=== PATIENT | female | born 1990 | race Caucasian/White ===

== ENCOUNTER 2018-01-31 03:10 | Inpatient (IN) ==
[2018-01-31] MEDS ORDERED: Ibuprofen 600 MG Tablet PO ONE (04:15)
[2018-01-31 04:47] LABS: Bilirubin,Urine Negative (Negative); Clarity,Urine Hazy (Clear); Color,Urine Yellow (Yellw/Straw); Glucose,Urine (UA) Negative (Negative); Leukocyte Esterase,Urine Negative (Negative); Mucus,Urine Few /lpf (Occasional); Nitrite,Urine Negative (Negative); Specific Gravity,Urine 1.023 (1.002-1.035); Squamous Epithelial Cell,Urine 11 /hpf (0-5)
--- NOTE | 2018-01-31 04:59 | ED ---
HPI General Chief Complaint: Nausea/Vomiting/Diarrhea Stated Complaint: medical Time Seen by Provider: 01/31/18 04:02 Source: patient and family () Mode of arrival: ambulatory Limitations: no limitations History of Present Illness HPI Narrative: 27-year-old female came to the emergency room with her and family with history of fever, chills, body aches, nausea and vomiting since past 4-6 hours. This was sudden onset. Patient says her throat hurts slightly when she swallows. Left ear hurts a little bit. She vomited 2 times nonbilious. Patient took some Tylenol prior to coming in. When she initially came in upon triage her temperature was 102.5. Patient is awake and answering questions appropriately. 1 of her daughters was coughing yesterday but did not have fever like her. No abdominal pain or chest pain. No dysuria or diarrhea. No aggravating or relieving factors identified MD complaint: Reports fever Onset (ago): hour(s) (4) Context: Reports sick contacts (Daughter was coughing yesterday) Associated symptoms: Reports chills, rigors, myalgias, sore throat, cough, nausea and vomiting Relieving factors: acetaminophen Exacerbating factors: nothing Treatments prior to arrival fever: Reports acetaminophen Related Data Home Medications Medication Instructions Recorded Confirmed No Known Home Medications 01/31/18 01/31/18 Previous Rx's Medication Instructions Recorded amoxicillin-pot clavulanate 1 tab PO Q12H #20 tab 02/02/18 [Augmentin] fluconazole 100 mg PO DAILY #10 tab 02/02/18 sulfamethoxazole-trimethoprim 1 tab PO Q12HR #20 tab 02/02/18 Allergies Allergy/AdvReac Type Severity Reaction Status Date / Time No Known Allergies Allergy Unverified 01/31/18 04:15 Review of Systems ROS: all other systems reviewed are negative Constitutional Reports fever(s) ENT Reports otalgia and Reports sore throat Gastrointestinal Reports nausea and Reports vomiting PMFSH Medical History Medical History Patient denies medical problems (Acute) Surgical History Surgical History No history of previous surgery (Acute) Family History Family History Other Family history normal Social History Social History Substance History: No History of Abuse Second Hand Smoke Exposure: No Smoking Status: Never smoker How Often Do You Have a Drink Containing Alcohol: Never Recent Travel in [facility] within the Last 8 Weeks: No Recent Out of Country Travel within the Last 8 Weeks: No Immunization History Tetanus Immunization: Never Vaccinated Exam Narrative Exam Narrative: GENERAL: Alert, moderate distress, answers questions appropriately SKIN: Focused skin assessment warm/dry. HEAD: Atraumatic. Normocephalic. EYES: Pupils equal and round. No scleral icterus. No injection or drainage. ENT: No nasal bleeding or discharge. Mucous membranes pink and moist. No pharyngeal erythema or exudates NECK: Trachea midline. No JVD. CARDIOVASCULAR: Regular rate and rhythm. No murmur appreciated. RESPIRATORY: No accessory muscle use. Clear to auscultation. Breath sounds equal bilaterally. GASTROINTESTINAL: Abdomen soft, non-tender, nondistended. Hepatic and splenic margins not palpable. MUSCULOSKELETAL: No obvious deformities. No clubbing. No cyanosis. No edema. NEUROLOGICAL: Awake and alert. No obvious cranial nerve deficits. Motor grossly within normal limits. Normal speech. PSYCHIATRIC: Appropriate mood and affect; insight and judgment normal. Course Initial Documented Vital Signs Temperature 102.3 F H 01/31/18 03:19 Pulse Rate 140 H 01/31/18 03:19 Respiratory Rate 20 01/31/18 03:19 Blood Pressure 121/61 01/31/18 03:19 Pulse Oximetry 97 01/31/18 03:19 Last Documented Vital Signs Temperature 98.1 F 02/02/18 08:00 Pulse Rate 71 02/02/18 08:00 Respiratory Rate 18 02/02/18 08:00 Blood Pressure 93/51 L 02/02/18 08:00 Pulse Oximetry 97 02/02/18 08:00 Medical Decision Making [facility] Narrative Medical decision making narrative: UA was negative. Awaiting for influenza to be resulted. Patient was given Motrin. Repeat temperature was 99.5. 6:44 AM blood test results are back. White blood cell count is significantly elevated with a left shift. Lactic acid is 2.8. I have ordered a third liter of IV fluid bolus, IV Zosyn and vancomycin to cover for sepsis. Based on these test results patient needs to be admitted. Awaiting for the hospitalist to call back. Medical Screen Exam Complete: Yes Emergency Medical Condition: Yes Lab Data Result diagrams: 02/01/18 05:57 02/01/18 05:57 Lab Results 01/31/18 01/31/18 01/31/18 Range/Units 04:32 05:44 05:44 WBC 18.9 H (4.0-11.0) th/mm3 RBC 4.57 (4.00-5.30) mil/mm3 Hgb 13.4 (11.6-15.3) gm/dL Hct 39.1 (35.0-46.0) % MCV 85.7 (80.0-100.0) fL MCH 29.4 (27.0-34.0) pg MCHC 34.3 (32.0-36.0) % RDW 13.3 (11.6-17.2) % Plt Count 222 (150-450) th/mm3 MPV 8.5 (7.0-11.0) fL Neut % (Auto) 90.8 H (16.0-70.0) % Lymph % (Auto) 4.3 L (9.0-44.0) % Rich % (Auto) 4.7 (0.0-8.0) % Eos % (Auto) 0.0 (0.0-4.0) % Baso % (Auto) 0.2 (0.0-2.0) % Neut # (Auto) 17.1 H (1.8-7.7) th/mm3 Lymph # (Auto) 0.8 L (1.0-4.8) th/mm3 Rich # (Auto) 0.9 (0.0-0.9) th/mm3 Eos # (Auto) 0.0 (0.0-0.4) th/mm3 Baso # (Auto) 0.0 (0.0-0.2) th/mm3 WBC Differential . Differential Comment Auto diff final Sodium 138 (136-145) meq/L Potassium 3.1 L (3.5-5.1) meq/L Chloride 104 (98-107) meq/L Carbon Dioxide 24.6 (21.0-32.0) meq/L Anion Gap 9 (5-15) meq/L BUN 15 (7-18) mg/dL Creatinine 0.83 (0.50-1.00) mg/dL Estimated GFR 82 L (>89) mL/min POC Glucose (68-110) mg/dl Random Glucose 106 (74-106) mg/dL Lactic Acid (0.4-2.0) mmol/L Calcium 8.6 (8.5-10.1) mg/dL Total Bilirubin 0.5 (0.2-1.0) mg/dL AST 36 (15-37) U/L ALT 41 (10-53) U/L Alkaline Phosphatase 97 (45-117) U/L Total Protein 8.2 (6.4-8.2) g/dL Albumin 4.1 (3.4-5.0) g/dL Procalcitonin (0.00-0.08) ng/mL Urine Color Yellow (Yellw/Straw) Urine Clarity Hazy H (Clear) Urine pH 7.0 (5.0-8.5) Ur Specific [place] 1.023 (1.002-1.035) Urine Protein Negative (Neg-Trace) mg/dL Urine Glucose (UA) Negative (Negative) mg/dL Urine Ketones Negative (Negative) mg/dL Urine Occult Blood Small H (Negative) Urine Nitrate Negative (Negative) Urine Bilirubin Negative (Negative) Urine Urobilinogen Less than 2 (Less than 2) mg/dL Ur Leukocyte Esterase Negative (Negative) Urine RBC 1 (0-3) /hpf Urine WBC 3 (0-5) /hpf Ur Squamous Epith Cells 11 (0-5) /hpf Urine Mucus Few H (Occasional) /lpf Micro UA Comment Culture not ind Ur Microscopic Review Not Reportable Urine Culture Comments Culture not ind Chlam trachomat DNA PCR (Not Detect) Hepatitis A IgM Ab (Nonreactive) Hep Bs Antigen (Nonreactive) Hep B Core IgM Ab (Nonreactive) Hep C IgG Ab (Nonreactive) HIV 1&2 Ab/P24 Ag 4thGn (Nonreactive) N.gonorrhoeae DNA (PCR) (Not Detect) 01/31/18 01/31/18 01/31/18 Range/Units 05:44 06:13 07:56 WBC (4.0-11.0) th/mm3 RBC (4.00-5.30) mil/mm3 Hgb (11.6-15.3) gm/dL Hct (35.0-46.0) % MCV (80.0-100.0) fL MCH (27.0-34.0) pg MCHC (32.0-36.0) % RDW (11.6-17.2) % Plt Count (150-450) th/mm3 MPV (7.0-11.0) fL Neut % (Auto) (16.0-70.0) % Lymph % (Auto) (9.0-44.0) % Rich % (Auto) (0.0-8.0) % Eos % (Auto) (0.0-4.0) % Baso % (Auto) (0.0-2.0) % Neut # (Auto) (1.8-7.7) th/mm3 Lymph # (Auto) (1.0-4.8) th/mm3 Rich # (Auto) (0.0-0.9) th/mm3 Eos # (Auto) (0.0-0.4) th/mm3 Baso # (Auto) (0.0-0.2) th/mm3 WBC Differential Differential Comment Sodium (136-145) meq/L Potassium (3.5-5.1) meq/L Chloride (98-107) meq/L Carbon Dioxide (21.0-32.0) meq/L Anion Gap (5-15) meq/L BUN (7-18) mg/dL Creatinine (0.50-1.00) mg/dL Estimated GFR (>89) mL/min POC Glucose 110 (68-110) mg/dl Random Glucose (74-106) mg/dL Lactic Acid 2.8 H 2.3 H (0.4-2.0) mmol/L Calcium (8.5-10.1) mg/dL Total Bilirubin (0.2-1.0) mg/dL AST (15-37) U/L ALT (10-53) U/L Alkaline Phosphatase (45-117) U/L Total Protein (6.4-8.2) g/dL Albumin (3.4-5.0) g/dL Procalcitonin (0.00-0.08) ng/mL Urine Color (Yellw/Straw) Urine Clarity (Clear) Urine pH (5.0-8.5) Ur Specific [place] (1.002-1.035) Urine Protein (Neg-Trace) mg/dL Urine Glucose (UA) (Negative) mg/dL Urine Ketones (Negative) mg/dL Urine Occult Blood (Negative) Urine Nitrate (Negative) Urine Bilirubin (Negative) Urine Urobilinogen (Less than 2) mg/dL Ur Leukocyte Esterase (Negative) Urine RBC (0-3) /hpf Urine WBC (0-5) /hpf Ur Squamous Epith Cells (0-5) /hpf Urine Mucus (Occasional) /lpf Micro UA Comment Ur Microscopic Review Urine Culture Comments Chlam trachomat DNA PCR (Not Detect) Hepatitis A IgM Ab (Nonreactive) Hep Bs Antigen (Nonreactive) Hep B Core IgM Ab (Nonreactive) Hep C IgG Ab (Nonreactive) HIV 1&2 Ab/P24 Ag 4thGn (Nonreactive) N.gonorrhoeae DNA (PCR) (Not Detect) 01/31/18 02/01/18 02/01/18 Range/Units 14:40 05:57 05:57 WBC 13.5 H (4.0-11.0) th/mm3 RBC 4.17 (4.00-5.30) mil/mm3 Hgb 12.1 (11.6-15.3) gm/dL Hct 36.4 (35.0-46.0) % MCV 87.3 (80.0-100.0) fL MCH 29.1 (27.0-34.0) pg MCHC 33.4 (32.0-36.0) % RDW 13.5 (11.6-17.2) % Plt Count 204 (150-450) th/mm3 MPV 8.4 (7.0-11.0) fL Neut % (Auto) 80.8 H (16.0-70.0) % Lymph % (Auto) 12.3 (9.0-44.0) % Rich % (Auto) 5.5 (0.0-8.0) % Eos % (Auto) 1.0 (0.0-4.0) % Baso % (Auto) 0.4 (0.0-2.0) % Neut # (Auto) 10.9 H (1.8-7.7) th/mm3 Lymph # (Auto) 1.7 (1.0-4.8) th/mm3 Rich # (Auto) 0.7 (0.0-0.9) th/mm3 Eos # (Auto) 0.1 (0.0-0.4) th/mm3 Baso # (Auto) 0.1 (0.0-0.2) th/mm3 WBC Differential . Differential Comment Auto diff final Sodium 141 (136-145) meq/L Potassium 3.5 (3.5-5.1) meq/L Chloride 111 H (98-107) meq/L Carbon Dioxide 22.9 (21.0-32.0) meq/L Anion Gap 7 (5-15) meq/L BUN 9 (7-18) mg/dL Creatinine 0.51 (0.50-1.00) mg/dL Estimated GFR Greater than 89 (>89) mL/min POC Glucose (68-110) mg/dl Random Glucose 101 (74-106) mg/dL Lactic Acid (0.4-2.0) mmol/L Calcium 8.0 L (8.5-10.1) mg/dL Total Bilirubin (0.2-1.0) mg/dL AST (15-37) U/L ALT (10-53) U/L Alkaline Phosphatase (45-117) U/L Total Protein (6.4-8.2) g/dL Albumin (3.4-5.0) g/dL Procalcitonin 1.65 H (0.00-0.08) ng/mL Urine Color (Yellw/Straw) Urine Clarity (Clear) Urine pH (5.0-8.5) Ur Specific [place] (1.002-1.035) Urine Protein (Neg-Trace) mg/dL Urine Glucose (UA) (Negative) mg/dL Urine Ketones (Negative) mg/dL Urine Occult Blood (Negative) Urine Nitrate (Negative) Urine Bilirubin (Negative) Urine Urobilinogen (Less than 2) mg/dL Ur Leukocyte Esterase (Negative) Urine RBC (0-3) /hpf Urine WBC (0-5) /hpf Ur Squamous Epith Cells (0-5) /hpf Urine Mucus (Occasional) /lpf Micro UA Comment Ur Microscopic Review Urine Culture Comments Chlam trachomat DNA PCR (Not Detect) Hepatitis A IgM Ab (Nonreactive) Hep Bs Antigen (Nonreactive) Hep B Core IgM Ab (Nonreactive) Hep C IgG Ab (Nonreactive) HIV 1&2 Ab/P24 Ag 4thGn (Nonreactive) N.gonorrhoeae DNA (PCR) (Not Detect) 02/01/18 02/01/18 Range/Units 13:23 16:00 WBC (4.0-11.0) th/mm3 RBC (4.00-5.30) mil/mm3 Hgb (11.6-15.3) gm/dL Hct (35.0-46.0) % MCV (80.0-100.0) fL MCH (27.0-34.0) pg MCHC (32.0-36.0) % RDW (11.6-17.2) % Plt Count (150-450) th/mm3 MPV (7.0-11.0) fL Neut % (Auto) (16.0-70.0) % Lymph % (Auto) (9.0-44.0) % Rich % (Auto) (0.0-8.0) % Eos % (Auto) (0.0-4.0) % Baso % (Auto) (0.0-2.0) % Neut # (Auto) (1.8-7.7) th/mm3 Lymph # (Auto) (1.0-4.8) th/mm3 Rich # (Auto) (0.0-0.9) th/mm3 Eos # (Auto) (0.0-0.4) th/mm3 Baso # (Auto) (0.0-0.2) th/mm3 WBC Differential Differential Comment Sodium (136-145) meq/L Potassium (3.5-5.1) meq/L Chloride (98-107) meq/L Carbon Dioxide (21.0-32.0) meq/L Anion Gap (5-15) meq/L BUN (7-18) mg/dL Creatinine (0.50-1.00) mg/dL Estimated GFR (>89) mL/min POC Glucose (68-110) mg/dl Random Glucose (74-106) mg/dL Lactic Acid (0.4-2.0) mmol/L Calcium (8.5-10.1) mg/dL Total Bilirubin (0.2-1.0) mg/dL AST (15-37) U/L ALT (10-53) U/L Alkaline Phosphatase (45-117) U/L Total Protein (6.4-8.2) g/dL Albumin (3.4-5.0) g/dL Procalcitonin (0.00-0.08) ng/mL Urine Color (Yellw/Straw) Urine Clarity (Clear) Urine pH (5.0-8.5) Ur Specific [place] (1.002-1.035) Urine Protein (Neg-Trace) mg/dL Urine Glucose (UA) (Negative) mg/dL Urine Ketones (Negative) mg/dL Urine Occult Blood (Negative) Urine Nitrate (Negative) Urine Bilirubin (Negative) Urine Urobilinogen (Less than 2) mg/dL Ur Leukocyte Esterase (Negative) Urine RBC (0-3) /hpf Urine WBC (0-5) /hpf Ur Squamous Epith Cells (0-5) /hpf Urine Mucus (Occasional) /lpf Micro UA Comment Ur Microscopic Review Urine Culture Comments Chlam trachomat DNA PCR Not detected (Not Detect) Hepatitis A IgM Ab Nonreactive (Nonreactive) Hep Bs Antigen Nonreactive (Nonreactive) Hep B Core IgM Ab Nonreactive (Nonreactive) Hep C IgG Ab Nonreactive (Nonreactive) HIV 1&2 Ab/P24 Ag 4thGn Nonreactive (Nonreactive) N.gonorrhoeae DNA (PCR) Not detected (Not Detect) Imaging Data Radiologist's impression: Abdomen Ultrasound 01/31/18 00:00 CONCLUSION: 1. Trace ascites 2. Mild echogenic liver. No gallstones. Chest X-Ray 01/31/18 05:21 CONCLUSION: No active disease. Pelvis Ultrasound 02/01/18 00:00 CONCLUSION: 1. Negative ultrasound pelvis. Discharge Plan Discharge Disposition Patient Disposition: 30 Still Patient Discharge Condition Condition: Good Discharge Order Discharge Orders: Discharge Order (Routine); Ordered 02/02/18 Ordered By: Joon Garsia Discharge Details Anticipated Discharge Date: 02/02/18 Discharge Comment: Follow up with [facility] within 1-2 weeks. Physicians Team ED Provider: Phil Mccray Primary Care Provider: Primary Care Bennie,Giselle Attending Provider: Joon Garsia Other Providers: Elizabeth Martinez ; Anabelle Burnham Status ED Status: Left Department Discharge Information Discharge Date/Time: 01/31/18 09:48
[2018-01-31] MEDS: Sod Chloride 0.9% Inj 1,000 ML IV.SIG SCH ×2 (05:42→09:15)
--- NOTE | 2018-01-31 05:53 | XR ---
EXAM DATE: 01/31/2018 5:21 AM EDT AGE/SEX: 27 years / Female INDICATIONS: Right breast pain, patient is currently . CLINICAL DATA: This is the patient's initial encounter. Patient reports that signs and symptoms have been present for 1 day and indicates a pain score of 6/10. MEDICAL/SURGICAL HISTORY: None. None. COMPARISON: No prior exams available for comparison. FINDINGS: A single AP view of the chest demonstrates the lungs to be symmetrically aerated without evidence of mass, infiltrate or effusion. The cardiomediastinal contours are unremarkable. Osseous structures a re intact. CONCLUSION: No active disease. Electronically signed by: Ulysses Lozada MD 01/31/2018 5:52 AM EDT
[2018-01-31 05:59] LABS: Baso % (Auto) 0.2 % (0.0-2.0); Hematocrit 39.1 % (35.0-46.0); Hemoglobin 13.4 gm/dL (11.6-15.3); Lymph # (Auto) 0.8 th/mm3 (1.0-4.8); Lymph % (Auto) 4.3 % (9.0-44.0); Mean Corpuscular HGB Conc 34.3 % (32.0-36.0); Mean Corpuscular Hemoglobin 29.4 pg (27.0-34.0); Mean Corpuscular Volume 85.7 fL (80.0-100.0); Mean Platelet Volume 8.5 fL (7.0-11.0); Mono # (Auto) 0.9 th/mm3 (0.0-0.9); Mono % (Auto) 4.7 % (0.0-8.0); Neut # (Auto) 17.1 th/mm3 (1.8-7.7); Neut % (Auto) 90.8 % (16.0-70.0); Platelet Count 222 th/mm3 (150-450); Red Blood Count 4.57 mil/mm3 (4.00-5.30); Red Cell Distribution Width 13.3 % (11.6-17.2); White Blood Count 18.9 th/mm3 (4.0-11.0)
[2018-01-31 06:33] LABS: Albumin 4.1 g/dL (3.4-5.0); Anion Gap 9 meq/L (5-15); Aspartate Aminotransferase 36 U/L (15-37); Blood Urea Nitrogen 15 mg/dL (7-18); Calcium 8.6 mg/dL (8.5-10.1); Carbon Dioxide 24.6 meq/L (21.0-32.0); Chloride 104 meq/L (98-107); Glomerular Filtration Rate 82 mL/min (>89); Glucose,Random 106 mg/dL (74-106); Potassium 3.1 meq/L (3.5-5.1); Sodium 138 meq/L (136-145)
[2018-01-31 06:34] LABS: Alanine Aminotransferase 41 U/L (10-53)
[2018-01-31 06:36] LABS: Alkaline Phosphatase 97 U/L (45-117); Total Protein 8.2 g/dL (6.4-8.2)
[2018-01-31] MEDS ORDERED: Piperacil/Tazo 4.5 GM Premix 4.5 GM/100 ML BAG IV.SIG ONE (06:42)
[2018-01-31] MEDS ORDERED: Vancomycin Inj 1 GM/200 ML PIGGYBACK IV.SIG ONE (06:42)
[2018-01-31] MEDS ORDERED: Sod Chloride 0.9% Inj 1,000 ML IV.SIG SCH (06:45)
[2018-01-31] MEDS ORDERED: Vancomycin Consult Pharmacy OTHER PRN (07:36)
[2018-01-31] MEDS ORDERED: Bisacodyl 10 MG Supp RECTAL PRN (07:42)
[2018-01-31] MEDS ORDERED: Acetaminophen 325 MG Tablet PO PRN (07:42)
[2018-01-31] MEDS ORDERED: Piperacil/Tazo 4.5 GM Premix 4.5 GM/100 ML BAG IV.SIG SCH (07:45)
[2018-01-31] MEDS ORDERED: Vancomycin Inj 1,000 MG in Sodium Chlor 0.9% Inj 250 ML IV.SIG ONE (08:00)
[2018-01-31] MEDS: Senna/Docusate Sodium 8.6/50 MG Tablet PO SCH ×2 (11:17→22:13)
[2018-01-31] MEDS: Enoxaparin Inj 40 MG/0.4 ML Syringe SQ SCH (11:17)
[2018-01-31] MEDS: Sod Chloride 0.9% Inj 1,000 ML IV.CONT SCH ×2 (12:24→19:49)
--- NOTE | 2018-01-31 13:59 | P.CONID ---
History of Present Illness Service: Infectious Disease Consult date: 01/31/18 Requesting Physician: Eileen Campoverde Reason for Consult: Evaluation and Mment of SIRS Primary Care Provider: No Primary Care Physician History of Present Illness: is a 27 y/o female from [place]. She speaks fairly good [place] and reports she has been in the [place] for last 11 years. 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 She presented to the emergency room accompanied by her with history of fever, chills, body aches, nausea and vomiting since past 4-6 hours. She reports was of sudden onset and she was doing well the day prior. Patient reports to me her abdomen started hurting she was nauseous and vomited twice non bilious. She took some Tylenol prior to coming in. When she initially came in upon triage her temperature was 102.5. She reports Patient is awake and answering questions appropriately. Denies any headache or focal weakness. No chest pain or resp symptoms. Reports occ dysuria Reports sick contacts (Daughter was coughing) Reports chills, rigors, myalgias. Denies sore throat except throat discomfort after throwing up. Her LMP was 3 weeks back. She denies any or security investigator symptoms. ID consulted for eval and Mment of SIRS. Review of Systems All other systems reviewed negative except as stated in HPI PMFSH - History History Provided By: Patient (denies any alcohol, drug abuse or smoking. ), Significant Other - Tobacco History Second Hand Smoke Exposure: No Tobacco Use In Past 30 Days: No Smoking Status: Never smoker - Alcohol History How Often Do You Have a Drink Containing Alcohol: Never - Substance Use History Substance History: No History of Abuse - Travel History Recent Travel in the [place] Within the Last 8 Weeks: No Recent Travel Out of the Country Within the Last 8 Weeks: No - Immunization History Tetanus Immunization: Never Vaccinated Medications and Allergies Active Medications: Active Medications Acetaminophen (Tylenol) 650 mg PO Q4H PRN PRN Reason: Temp > 100.4 Al Hydroxide/Mg Hydroxide (Milk Of Magnesia Liq) 30 ml PO Q12H PRN PRN Reason: Mild Constipation Bisacodyl (Dulcolax Supp) 10 mg RECTAL DAILY PRN PRN Reason: SEVERE CONSITIPATION Enoxaparin Sodium (Lovenox Inj) 40 mg SQ Q24H [facility] Last Admin: 01/31/18 11:17 Dose: Not Given Sodium Chloride (Ns Inj) 1,000 mls @ 0 mls/hr IV.SIG BOLUS TERRELL Stop: 02/01/18 05:31 Last Admin: 01/31/18 09:15 Dose: 1,000 mls/hr Sodium Chloride (Ns Inj) 1,000 mls @ 0 mls/hr IV.SIG BOLUS TERRELL Last Infusion: 01/31/18 07:42 Dose: Infused Sodium Chloride (Ns Inj) 1,000 mls @ 100 mls/hr IV.CONT .Q10H TERERLL Last Admin: 01/31/18 12:24 Dose: 100 mls/hr Piperacillin/Tazobactam/Dextrose (Zosyn 4.5 Gm Premix) 4.5 gm in 100 mls @ 200 mls/hr IV.SIG Q6H TERRELL Vancomycin HCl 1,000 mg/ (Sodium Chloride) 250 mls @ 250 mls/hr IV.SIG Q12H TERRELL Lactulose (Lactulose Liq) 30 ml PO DAILY PRN PRN Reason: SEVERE CONSITIPATION Miscellaneous Information ([facility] Ordered Lab Info) 0 each OTHER ONCE ONE Stop: 02/01/18 19:46 Ondansetron HCl (Zofran Inj) 4 mg IV.PUSH Q6H PRN PRN Reason: NAUSEA OR VOMITING Pharmacy Profile Note (Vancomycin Consult Pharmacy) 1 each OTHER UNSCH PRN PRN Reason: Pharmacy to dose Senna/Docusate Sodium (Tanvi-Colace) 1 tab PO BID [facility] Last Admin: 01/31/18 11:17 Dose: Not Given Sennosides (Senokot) 17.2 mg PO Q12H PRN PRN Reason: Moderate Constipation Allergies Allergy/AdvReac Type Severity Reaction Status Date / Time No Known Allergies Allergy Unverified 01/31/18 04:15 Home Medications Medication Instructions Recorded Confirmed Type No Known Home Medications 01/31/18 01/31/18 History Exam Vital signs: Vital Signs 01/31/18 03:19 01/31/18 04:08 01/31/18 05:25 Temperature 102.3 F H 99.6 F Pulse Rate 140 H 110 H Respiratory Rate 20 20 Blood Pressure 121/61 111/63 Pulse Oximetry 97 97 01/31/18 06:49 01/31/18 10:00 01/31/18 12:00 Temperature 98.9 F 97.8 F 98.1 F Pulse Rate 95 H 85 88 Respiratory Rate 16 17 17 Blood Pressure 103/56 L 92/53 L 111/59 L Pulse Oximetry 96 98 100 Intake & Output 01/30/18 01/31/18 01/31/18 18:59 06:59 18:59 Intake Total 2350 / 2350 Balance 2350 / 2350 Weight 65.771 kg Intake: IV 2350 / 2350 Zosyn 4.5 GM Premix 4.5 gm In 100 / 100 100 ml @ 200 mls/hr IV.SIG ONCE ONE Rx#:[id number] NS Inj 1,000 ML @ Wide Open IV. 1999 SIG BOLUS TERRELL Rx#:[id number] Vancomycin Inj 1,000 MG In NS 250 / 250 Inj 250 ML @ 200 mls/hr IV.SIG ONCE ONE Rx#:[id number] Narrative: GENERAL: Obese, well-developed, not in acute distress SKIN: Cool and dry, no generalized rash HEAD: Atraumatic. Normocephalic. No temporal or scalp tenderness. EYES: Pupils equal round and reactive. Scleral icterus. No injection or drainage. No petechia ENT: Nothing abnormal detected NECK: Trachea midline. Supple, nontender, no meningeal signs. CARDIOVASCULAR: HS audible. RESPIRATORY: Clear to auscultation bilaterally. GASTROINTESTINAL: Abdomen soft nontender. MUSCULOSKELETAL: Extremities without clubbing, cyanosis. NEUROLOGICAL: Alert oriented 3. Nonfocal. Psych cooperative IV line sites ok. Results - Labs CBC & Chem 7: 01/31/18 05:44 01/31/18 05:44 Labs: Laboratory Results - last 24 hr 01/31/18 01/31/18 01/31/18 04:32 05:44 05:44 WBC 18.9 H RBC 4.57 Hgb 13.4 Hct 39.1 MCV 85.7 MCH 29.4 MCHC 34.3 RDW 13.3 Plt Count 222 MPV 8.5 Neut % (Auto) 90.8 H Lymph % (Auto) 4.3 L Floyd % (Auto) 4.7 Eos % (Auto) 0.0 Baso % (Auto) 0.2 Neut # (Auto) 17.1 H Lymph # (Auto) 0.8 L Floyd # (Auto) 0.9 Eos # (Auto) 0.0 Baso # (Auto) 0.0 WBC Differential . Differential Comment Auto diff final Sodium 138 Potassium 3.1 L Chloride 104 Carbon Dioxide 24.6 Anion Gap 9 BUN 15 Creatinine 0.83 Estimated GFR 82 L POC Glucose Random Glucose 106 Lactic Acid Calcium 8.6 Total Bilirubin 0.5 AST 36 ALT 41 Alkaline Phosphatase 97 Total Protein 8.2 Albumin 4.1 Urine Color Yellow Urine Clarity Hazy H Urine pH 7.0 Ur Specific [place] 1.023 Urine Protein Negative Urine Glucose (UA) Negative Urine Ketones Negative Urine Occult Blood Small H Urine Nitrate Negative Urine Bilirubin Negative Urine Urobilinogen Less than 2 Ur Leukocyte Esterase Negative Urine RBC 1 Urine WBC 3 Ur Squamous Epith Cells 11 Urine Mucus Few H Micro UA Comment Culture not ind Ur Microscopic Review Not Reportable Urine Culture Comments Culture not ind 01/31/18 01/31/18 01/31/18 05:44 06:13 07:56 WBC RBC Hgb Hct MCV MCH MCHC RDW Plt Count MPV Neut % (Auto) Lymph % (Auto) Floyd % (Auto) Eos % (Auto) Baso % (Auto) Neut # (Auto) Lymph # (Auto) Floyd # (Auto) Eos # (Auto) Baso # (Auto) WBC Differential Differential Comment Sodium Potassium Chloride Carbon Dioxide Anion Gap BUN Creatinine Estimated GFR POC Glucose 110 Random Glucose Lactic Acid 2.8 H 2.3 H Calcium Total Bilirubin AST ALT Alkaline Phosphatase Total Protein Albumin Urine Color Urine Clarity Urine pH Ur Specific [place] Urine Protein Urine Glucose (UA) Urine Ketones Urine Occult Blood Urine Nitrate Urine Bilirubin Urine Urobilinogen Ur Leukocyte Esterase Urine RBC Urine WBC Ur Squamous Epith Cells Urine Mucus Micro UA Comment Ur Microscopic Review Urine Culture Comments - Imaging Impressions Chest X-Ray 01/31/18 05:21 CONCLUSION: No active disease. Assessment and Plan - Plan SIRS possible sepsis present on admission. Possible Viral gastroenteritis or bacterial. rule out other systemic infections. Obese r/o acute cholecystitis. Recs: Continue Zosyn IV Continue Vanco IV for now. Check Procalcitonin Check US abdomen in view of abdominal symptoms. follow cultures. follow clinical course.
[2018-01-31] MEDS: Piperacil/Tazo 4.5 GM Premix 4.5 GM/100 ML BAG IV.SIG SCH ×2 (14:22→22:12)
--- NOTE | 2018-01-31 15:35 | P.HP ---
History of Present Illness Primary Care Physician: No Primary Care Physician Chief Complaint: fever History of Present Illness: Pleasant 27 y/o female from [place] who presented to the emergency room accompanied by her with history of fever, chills, body aches, nausea and vomiting since past 4-6 hours. She reports was of sudden onset and she was doing well the day prior. Patient reports to me her abdomen started hurting she was nauseous and vomited twice non bilious, nonbloody. Reports sick contacts ( Daughter was coughing). Has associated chills, rigors, myalgias. She took some Tylenol prior to coming in. When she initially came in upon triage her temperature was 102.5. No chest pain or sob, cough. Reports occ dysuria, however UA not consistent with infection. Denies sore throat except throat discomfort after throwing up. Her LMP was 3 weeks back. She denies any or filenet architect symptoms. No history of travel Inpatient Certification: I certify that the inpatient services were ordered in accordance with Medicare regulations governing the order. This includes certification that hospital inpatient services are reasonable and necessary and in the case of services not specified as inpatient-only under 42 CFR 419.22(n), that they are appropriately provided as inpatient services in accordance to with the 2-midnight benchmark under 43 CFR 412.3(e) Estimated Total Length of Stay (Days): 3 Plans for Post Hospital Care: Home Review of Systems All other systems reviewed negative except as stated in HPI PMFSH - History History Provided By: Patient (denies any alcohol, drug abuse or smoking. ), Significant Other - Medical / Surgical Hx Neg / Unobtainable Medical Problems Denied: Yes Surgical History: No Previous Surgery - Medical History Medical History: Medical History (Last Updated 01/31/18 @ 16:54 by Eileen Campoverde MD) Patient denies medical problems - Surgical History Surgical History: Surgical History (Last Updated 01/31/18 @ 16:54 by Eileen Campoverde MD) No history of previous surgery - Family History Family History: Family History (Last Updated 01/31/18 @ 16:55 by Eileen Campoverde MD) Other Family history normal No pertinent family history - Tobacco History Second Hand Smoke Exposure: No Tobacco Use In Past 30 Days: No Smoking Status: Never smoker - Alcohol History How Often Do You Have a Drink Containing Alcohol: Never - Substance Use History Substance History: No History of Abuse - Travel History Recent Travel in the [place] Within the Last 8 Weeks: No Recent Travel Out of the Country Within the Last 8 Weeks: No - Immunization History Tetanus Immunization: Never Vaccinated Medications and Allergies Active Medications: Active Medications Acetaminophen (Tylenol) 650 mg PO Q4H PRN PRN Reason: Temp > 100.4 Last Admin: 01/31/18 14:20 Dose: 650 mg Al Hydroxide/Mg Hydroxide (Milk Of Magnesia Liq) 30 ml PO Q12H PRN PRN Reason: Mild Constipation Bisacodyl (Dulcolax Supp) 10 mg RECTAL DAILY PRN PRN Reason: SEVERE CONSITIPATION Enoxaparin Sodium (Lovenox Inj) 40 mg SQ Q24H TERRE[facility] Last Admin: 01/31/18 11:17 Dose: Not Given Sodium Chloride (Ns Inj) 1,000 mls @ 0 mls/hr IV.SIG BOLUS [facility] Stop: 02/01/18 05:31 Last Admin: 01/31/18 09:15 Dose: 1,000 mls/hr Sodium Chloride (Ns Inj) 1,000 mls @ 0 mls/hr IV.SIG BOLUS TERRELL Last Infusion: 01/31/18 07:42 Dose: Infused Sodium Chloride (Ns Inj) 1,000 mls @ 100 mls/hr IV.CONT .Q10H [facility] Last Admin: 01/31/18 12:24 Dose: 100 mls/hr Piperacillin/Tazobactam/Dextrose (Zosyn 4.5 Gm Premix) 4.5 gm in 100 mls @ 200 mls/hr IV.SIG Q6H [facility] Last Admin: 01/31/18 14:22 Dose: 200 mls/hr Vancomycin HCl 1,000 mg/ (Sodium Chloride) 250 mls @ 250 mls/hr IV.SIG Q12H TER[facility] Lactulose (Lactulose Liq) 30 ml PO DAILY PRN PRN Reason: SEVERE CONSITIPATION Miscellaneous Information ([facility] Ordered Lab Info) 0 each OTHER ONCE ONE Stop: 02/01/18 19:46 Ondansetron HCl (Zofran Inj) 4 mg IV.PUSH Q6H PRN PRN Reason: NAUSEA OR VOMITING Pharmacy Profile Note (Vancomycin Consult Pharmacy) 1 each OTHER UNSCH PRN PRN Reason: Pharmacy to dose Senna/Docusate Sodium (Tanvi-Colace) 1 tab PO BID [facility] Last Admin: 01/31/18 11:17 Dose: Not Given Sennosides (Senokot) 17.2 mg PO Q12H PRN PRN Reason: Moderate Constipation Allergies Allergy/AdvReac Type Severity Reaction Status Date / Time No Known Allergies Allergy Unverified 01/31/18 04:15 Home Medications Medication Instructions Recorded Confirmed Type No Known Home Medications 01/31/18 01/31/18 History Exam Vital signs: Vital Signs 01/31/18 03:19 01/31/18 04:08 01/31/18 05:25 Temperature 102.3 F H 99.6 F Pulse Rate 140 H 110 H Respiratory Rate 20 20 Blood Pressure 121/61 111/63 Pulse Oximetry 97 97 01/31/18 06:49 01/31/18 10:00 01/31/18 12:00 Temperature 98.9 F 97.8 F 98.1 F Pulse Rate 95 H 85 88 Respiratory Rate 16 17 17 Blood Pressure 103/56 L 92/53 L 111/59 L Pulse Oximetry 96 98 100 Intake & Output 01/30/18 01/31/18 01/31/18 18:59 06:59 18:59 Intake Total 2350 / 2350 Balance 2350 / 2350 Weight 65.771 kg Intake: IV 2350 / 2350 Zosyn 4.5 GM Premix 4.5 gm In 100 / 100 100 ml @ 200 mls/hr IV.SIG ONCE ONE Rx#:[id number] NS Inj 1,000 ML @ Wide Open IV. 1999 / 1999 SIG BOLUS [facility] Rx#:[id number] Vancomycin Inj 1,000 MG In NS 250 / 250 Inj 250 ML @ 200 mls/hr IV.SIG ONCE ONE Rx#:[id number] Narrative: GENERAL: Pleasant 27 yo F, obese, in nad. SKIN: Warm and dry. No rash. HEAD: Atraumatic. Normocephalic. EYES: Pupils equal and round. No scleral icterus. No injection or drainage. ENT: No nasal bleeding or discharge. Mucous membranes pink and moist. NECK: Trachea midline. No JVD. CARDIOVASCULAR: Regular rate and rhythm. RESPIRATORY: No accessory muscle use. Clear to auscultation. Breath sounds equal bilaterally. GASTROINTESTINAL: Abdomen soft, obese, non-tender, nondistended. Hepatic and splenic margins not palpable. MUSCULOSKELETAL: Extremities without clubbing, cyanosis, or edema. No obvious deformities. NEUROLOGICAL: Awake and alert. No obvious cranial nerve deficits. Motor grossly within normal limits. Five out of 5 muscle strength in the arms and legs. Normal speech. PSYCHIATRIC: Appropriate mood and affect; insight and judgment normal. Results - Labs CBC & Chem 7: 01/31/18 05:44 01/31/18 05:44 Labs: Laboratory Results - last 24 hr 01/31/18 01/31/18 01/31/18 04:32 05:44 05:44 WBC 18.9 H RBC 4.57 Hgb 13.4 Hct 39.1 MCV 85.7 MCH 29.4 MCHC 34.3 RDW 13.3 Plt Count 222 MPV 8.5 Neut % (Auto) 90.8 H Lymph % (Auto) 4.3 L [place] % (Auto) 4.7 Eos % (Auto) 0.0 Baso % (Auto) 0.2 Neut # (Auto) 17.1 H Lymph # (Auto) 0.8 L [place] # (Auto) 0.9 Eos # (Auto) 0.0 Baso # (Auto) 0.0 WBC Differential . Differential Comment Auto diff final Sodium 138 Potassium 3.1 L Chloride 104 Carbon Dioxide 24.6 Anion Gap 9 BUN 15 Creatinine 0.83 Estimated GFR 82 L POC Glucose Random Glucose 106 Lactic Acid Calcium 8.6 Total Bilirubin 0.5 AST 36 ALT 41 Alkaline Phosphatase 97 Total Protein 8.2 Albumin 4.1 Urine Color Yellow Urine Clarity Hazy H Urine pH 7.0 Ur Specific [place] 1.023 Urine Protein Negative Urine Glucose (UA) Negative Urine Ketones Negative Urine Occult Blood Small H Urine Nitrate Negative Urine Bilirubin Negative Urine Urobilinogen Less than 2 Ur Leukocyte Esterase Negative Urine RBC 1 Urine WBC 3 Ur Squamous Epith Cells 11 Urine Mucus Few H Micro UA Comment Culture not ind Ur Microscopic Review Not Reportable Urine Culture Comments Culture not ind 01/31/18 01/31/18 01/31/18 05:44 06:13 07:56 WBC RBC Hgb Hct MCV MCH MCHC RDW Plt Count MPV Neut % (Auto) Lymph % (Auto) [place] % (Auto) Eos % (Auto) Baso % (Auto) Neut # (Auto) Lymph # (Auto) [place] # (Auto) Eos # (Auto) Baso # (Auto) WBC Differential Differential Comment Sodium Potassium Chloride Carbon Dioxide Anion Gap BUN Creatinine Estimated GFR POC Glucose 110 Random Glucose Lactic Acid 2.8 H 2.3 H Calcium Total Bilirubin AST ALT Alkaline Phosphatase Total Protein Albumin Urine Color Urine Clarity Urine pH Ur Specific [place] Urine Protein Urine Glucose (UA) Urine Ketones Urine Occult Blood Urine Nitrate Urine Bilirubin Urine Urobilinogen Ur Leukocyte Esterase Urine RBC Urine WBC Ur Squamous Epith Cells Urine Mucus Micro UA Comment Ur Microscopic Review Urine Culture Comments - Imaging Impressions Chest X-Ray 01/31/18 05:21 CONCLUSION: No active disease. Caprini VTE Risk Assessment Caprini VTE Risk Assessment: No/Low Risk (score <= 1) Caprini Risk Assessment Model: Point Value = 1 Point Value = 2 Point Value = 3 Point Value = 5 Age 41-60 Minor surgery BMI > 25 kg/m2 Swollen legs Varicose veins or History of unexplained or recurrent spontaneous Oral contraceptives or hormone replacement Sepsis (< 1 month) Serious lung disease, including pneumonia (< 1 month) Abnormal pulmonary function Acute myocardial infarction Congestive heart failure (< 1 month) History of inflammatory bowel disease Medical patient at bed rest Age 61-74 Arthroscopic surgery Major open surgery (> 45 min) Laparoscopic surgery (> 45 min) Malignancy Confined to bed (> 72 hours) Immobilizing plaster cast Central venous access Age >= 75 History of VTE Family history of VTE Factor V Leiden Prothrombin [id number] Lupus anticoagulant Anticardiolipin antibodies Elevated serum homocysteine Heparin-induced thrombocytopenia Other congenital or acquired thrombophilia Stroke (< 1 month) Elective arthroplasty Hip, pelvis, or leg fracture Acute spinal cord injury (< 1 month) Prophylaxis Regimen: Total Risk Factor Score Risk Level Prophylaxis Regimen 0-1 Low Early ambulation 2 Moderate Order ONE of the following: *Sequential Compression Device (SCD) *Heparin 5000 units SQ BID 3-4 Higher Order ONE of the following medications: *Heparin 5000 units SQ TID *Enoxaparin/Lovenox 40 mg SQ daily (WT < 150 kg, CrCl > 30 mL/min) *Enoxaparin/Lovenox 30 mg SQ daily (WT < 150 kg, CrCl > 10-29 mL/min) *Enoxaparin/Lovenox 30 mg SQ BID (WT < 150 kg, CrCl > 30 mL/min) AND/OR *Sequential Compression Device (SCD) 5 or more Highest Order ONE of the following medications: *Heparin 5000 units SQ TID (Preferred with Epidurals) *Enoxaparin/Lovenox 40 mg SQ daily (WT < 150 kg, CrCl > 30 mL/min) *Enoxaparin/Lovenox 30 mg SQ daily (WT < 150 kg, CrCl > 10-29 mL/min) *Enoxaparin/Lovenox 30 mg SQ BID (WT < 150 kg, CrCl > 30 mL/min) AND *Sequential Compression Device (SCD) Assessment and Plan - Plan 27 yo F with: SIRS possible sepsis present on admission. Tachycardic, with high grade fevers and leucocytosis on admission. No clear source of infection however suspected GI Possible Viral vs bacterial gastroenteritis Obesity BMI of 29.3 r/o acute cholecystitis. Hypokalemia. Replaced Monitor lytes and replace Blood cx sent, follow up results CXR and UA reviewed and normal. Started on IV abx Zosyn, Vanco IV Consult ID specialist appreciate recommendations Check Procalcitonin Check US abdomen in view of abdominal symptoms. Antipyretics for persistent fevers Discussed with the patient, nurse Dr Mccray ER physician
[2018-01-31] MEDS ORDERED: Ibuprofen 400 MG Tablet PO PRN (16:52)
[2018-01-31] MEDS: Vancomycin Inj 1,000 MG in Sodium Chlor 0.9% Inj 250 ML IV.SIG SCH (22:12)
[2018-01-31] MEDS: Famotidine 20 MG Tablet PO SCH (22:13)
--- NOTE | 2018-01-31 22:25 | US ---
EXAM DATE: 01/31/2018 12:00 AM EDT AGE/SEX: 27 years / Female INDICATIONS: Abdominal pain. CLINICAL DATA: This is the patient's initial encounter. Patient reports that signs and symptoms have been present for 2 days and indicates a pain score of 8/10. MEDICAL/SURGICAL HISTORY: . Abdominal pain. None. COMPARISON: No prior exams available for comparison. MEASUREMENTS: Liver:__ 17.7 cm. Common Bile Duct:___ 4mm. Right Kidney:___10.6 x 4.3 x 4.5 cm. Left Kidney:___13.0 x 4.4 x 5.0 cm. Spleen:___11.1 cm. FINDINGS: Liver: Increased echotexture without focal lesion or ductal dilation. Portal Vein: Hepatopedal flow seen in portal vein. Common Duct: No intraluminal mass or stone visualized. Gallbladder: Demonstrates no wall thickening or pericholecystic fluid. No stones visualized. Pancreas: Not well visualized. Right Kidney: Increased echotexture. No mass or hydronephrosis. Left Kidney: Increased echotexture. No mass or hydronephrosis. Ascites: Trace fluid around the spleen. Pleural Effusion: Left Spleen: No focal lesion. Aorta: Non aneurysmal. IVC: Within normal limits Other: None. CONCLUSION: 1. Trace ascites 2. Mild echogenic liver. No gallstones. Electronically signed by: Pritesh Broderick MD 01/31/2018 10:24 PM EDT
[2018-02-01] MEDS: Piperacil/Tazo 4.5 GM Premix 4.5 GM/100 ML BAG IV.SIG SCH ×2 (01:58→11:05)
[2018-02-01] MEDS: Sod Chloride 0.9% Inj 1,000 ML IV.CONT SCH ×3 (02:47→15:47)
[2018-02-01 06:54] LABS: Baso # (Auto) 0.1 th/mm3 (0.0-0.2); Baso % (Auto) 0.4 % (0.0-2.0); Eos # (Auto) 0.1 th/mm3 (0.0-0.4); Hematocrit 36.4 % (35.0-46.0); Hemoglobin 12.1 gm/dL (11.6-15.3); Lymph # (Auto) 1.7 th/mm3 (1.0-4.8); Lymph % (Auto) 12.3 % (9.0-44.0); Mean Corpuscular HGB Conc 33.4 % (32.0-36.0); Mean Corpuscular Hemoglobin 29.1 pg (27.0-34.0); Mean Corpuscular Volume 87.3 fL (80.0-100.0); Mean Platelet Volume 8.4 fL (7.0-11.0); Mono # (Auto) 0.7 th/mm3 (0.0-0.9); Mono % (Auto) 5.5 % (0.0-8.0); Neut # (Auto) 10.9 th/mm3 (1.8-7.7); Neut % (Auto) 80.8 % (16.0-70.0); Platelet Count 204 th/mm3 (150-450); Red Blood Count 4.17 mil/mm3 (4.00-5.30); Red Cell Distribution Width 13.5 % (11.6-17.2); White Blood Count 13.5 th/mm3 (4.0-11.0)
[2018-02-01 07:22] LABS: Anion Gap 7 meq/L (5-15); Blood Urea Nitrogen 9 mg/dL (7-18); Carbon Dioxide 22.9 meq/L (21.0-32.0); Chloride 111 meq/L (98-107); Glomerular Filtration Rate Greater Than 89 mL/min (>89); Glucose,Random 101 mg/dL (74-106); Potassium 3.5 meq/L (3.5-5.1); Sodium 141 meq/L (136-145)
[2018-02-01] MEDS ORDERED: Vancomycin Inj 1,000 MG in Sodium Chlor 0.9% Inj 250 ML IV.SIG SCH (08:00)
[2018-02-01] MEDS: Vancomycin Inj 1,000 MG in Sodium Chlor 0.9% Inj 250 ML IV.SIG SCH (08:27)
[2018-02-01] MEDS: Famotidine 20 MG Tablet PO SCH ×2 (08:29→20:35)
[2018-02-01] MEDS: Enoxaparin Inj 40 MG/0.4 ML Syringe SQ SCH (08:29)
[2018-02-01] MEDS: Senna/Docusate Sodium 8.6/50 MG Tablet PO SCH ×2 (08:35→20:36)
--- NOTE | 2018-02-01 12:58 | P.PNID ---
Subjective Remarks: is a 27 y/o female from [place]. She speaks fairly good [place] and reports she has been in the [place] for last 11 years. 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 She presented to the emergency room accompanied by her with history of fever, chills, body aches, nausea and vomiting since past 4-6 hours. She reports was of sudden onset and she was doing well the day prior. Patient reports to me her abdomen started hurting she was nauseous and vomited twice non bilious. She took some Tylenol prior to coming in. When she initially came in upon triage her temperature was 102.5. She reports Patient is awake and answering questions appropriately. Denies any headache or focal weakness. No chest pain or resp symptoms. Reports occ dysuria Reports sick contacts (Daughter was coughing) Reports chills, rigors, myalgias. Denies sore throat except throat discomfort after throwing up. Her LMP was 3 weeks back. She denies any or dispatch specialist symptoms. ID consulted for eval and Mment of SIRS. Overnight events reviewed. On further clarification patient says she has an IUD and does not have regular periods. occ spotting. Now complains of brownish yellow discharge Per vaginally. Fevers defervesced. No rash No diarrhea No abd pain. Antibiotics: Zosyn IV Vanco IV Lines: Lines ok Past Medical History: reviewed Allergies/Adverse Reactions: Allergies No Known Allergies Allergy (Unverified 01/31/18 04:15) Objective Vital Signs 01/31/18 15:59 01/31/18 20:00 01/31/18 22:00 Temperature 102.5 F H 99.3 F Pulse Rate 128 H 93 H Respiratory Rate 19 18 18 Blood Pressure 126/81 117/62 Pulse Oximetry 95 96 02/01/18 00:00 02/01/18 04:49 02/01/18 08:00 Temperature 99.1 F 98.2 F Pulse Rate 94 H 95 H Respiratory Rate 17 17 17 Blood Pressure 120/67 102/53 L Pulse Oximetry 96 99 Intake & Output 01/31/18 02/01/18 02/01/18 18:59 06:59 18:59 Intake Total 3510 / 3510 2030 / 2030 1000 / 1000 Output Total 1100 / 1100 1400 / 1400 Balance 2410 / 2410 630 / 630 1000 / 1000 Weight 65.771 kg 73 kg Intake: IV 2550 / 2550 1450 / 1450 1000 / 1000 NS Inj 1,000 ML @ 100 mls/hr IV 1000 / 1000 1000 / 1000 .CONT .Q10H [facility] Rx#:[id number] Ofirmev Inj 1,000 mg In 100 ml 100 / 100 @ 400 mls/hr IV.SIG ONCE ONE Rx #:[id number] Zosyn 4.5 GM Premix 4.5 gm In 200 / 200 200 / 200 100 ml @ 200 mls/hr IV.SIG Q6H TERRE[facility] Rx#:[id number] NS Inj 1,000 ML @ Wide Open IV. 1999 / 1999 SIG BOLUS [facility] Rx#:[id number] Vancomycin Inj 1,000 MG In NS 250 / 250 250 / 250 Inj 250 ML @ 250 mls/hr IV.SIG Q12H [facility] Rx#:[id number] Oral 960 / 960 580 / 580 Output: Urine 1100 / 1100 1400 / 1400 Other: # Bowel Movements 0 0 01/31/18 05:44 Blood - Peripheral Aerobic Blood Culture - Preliminary No growth in 1 day 01/31/18 05:44 Blood - Peripheral Anaerobic Blood Culture - Preliminary No growth in 1 day 01/31/18 05:39 Blood - Peripheral Aerobic Blood Culture - Preliminary No growth in 1 day 01/31/18 05:39 Blood - Peripheral Anaerobic Blood Culture - Preliminary No growth in 1 day 01/31/18 04:32 Nasal Wash Influenza Types A,B Antigen - Final Negative for FLU A and B antigen Infection due to influenza A or B cannot be ruled out since the antigen present in the sample may be below the detection limit of the test. Lab - Hematology Results 01/31/18 02/01/18 05:44 05:57 WBC 18.9 H 13.5 H RBC 4.57 4.17 Hgb 13.4 12.1 Hct 39.1 36.4 MCV 85.7 87.3 MCH 29.4 29.1 MCHC 34.3 33.4 RDW 13.3 13.5 Plt Count 222 204 MPV 8.5 8.4 Neut % (Auto) 90.8 H 80.8 H Lymph % (Auto) 4.3 L 12.3 [place] % (Auto) 4.7 5.5 Eos % (Auto) 0.0 1.0 Baso % (Auto) 0.2 0.4 Neut # (Auto) 17.1 H 10.9 H Lymph # (Auto) 0.8 L 1.7 [place] # (Auto) 0.9 0.7 Eos # (Auto) 0.0 0.1 Baso # (Auto) 0.0 0.1 WBC Differential . . Differential Comment Auto diff final Auto diff final Lab - Chemistry Results 01/31/18 01/31/18 01/31/18 05:44 05:44 06:13 Sodium 138 Potassium 3.1 L Chloride 104 Carbon Dioxide 24.6 Anion Gap 9 BUN 15 Creatinine 0.83 Estimated GFR 82 L POC Glucose 110 Random Glucose 106 Lactic Acid 2.8 H Calcium 8.6 Total Bilirubin 0.5 AST 36 ALT 41 Alkaline Phosphatase 97 Total Protein 8.2 Albumin 4.1 Procalcitonin 01/31/18 01/31/18 02/01/18 07:56 14:40 05:57 Sodium 141 Potassium 3.5 Chloride 111 H Carbon Dioxide 22.9 Anion Gap 7 BUN 9 Creatinine 0.51 Estimated GFR Greater than 89 POC Glucose Random Glucose 101 Lactic Acid 2.3 H Calcium 8.0 L Total Bilirubin AST ALT Alkaline Phosphatase Total Protein Albumin Procalcitonin 1.65 H Imaging: ITS Impressions Abdomen Ultrasound 01/31/18 00:00 CONCLUSION: 1. Trace ascites 2. Mild echogenic liver. No gallstones. Chest X-Ray 01/31/18 05:21 CONCLUSION: No active disease. Physical Exam: GENERAL: Obese, well-developed, not in acute distress SKIN: Cool and dry, no generalized rash HEAD: Atraumatic. Normocephalic. No temporal or scalp tenderness. EYES: Pupils equal round and reactive. Scleral icterus. No injection or drainage. No petechia ENT: Nothing abnormal detected NECK: Trachea midline. Supple, nontender, no meningeal signs. CARDIOVASCULAR: HS audible. RESPIRATORY: Clear to auscultation bilaterally. GASTROINTESTINAL: Abdomen soft nontender. MUSCULOSKELETAL: Extremities without clubbing, cyanosis. NEUROLOGICAL: Alert oriented 3. Nonfocal. Per vaginal exam: Brownish yellow discharge noted spontaneously as well as on abdominal pressure. Psych cooperative IV line sites ok. Assessment and Plan - Plan SIRS possible sepsis present on admission. Possible Viral gastroenteritis or bacterial. rule out other systemic infections. Obese r/o acute cholecystitis. Recs: DC Zosyn IV DC Vanco IV for now. Start Unasyn IV to cover for Cardiac Cath Lab Manager organisms. Start Diflucan 100 mg po daily. Procalcitonin high suggestive of bacterial infection. Will get pelvic non US Consult Cardiac Cath Lab Manager for possible endometritis in presence of IUD. follow cultures. follow clinical course. neo larson RN dw patient: she consents for HIV screen.
[2018-02-01] MEDS: Fluconazole 100 MG Tablet PO SCH (13:51)
[2018-02-01] MEDS: Ampicillin/Sulbactam Inj 1,500 MG in Sodium Chloride 0.9% Inj 100 ML IV.SIG SCH ×2 (13:51→20:36)
--- NOTE | 2018-02-01 13:56 | ECG ---
Date Performed: 01/31/2018 Time Performed: 13:12:10 PTAGE: 27 years EKG: SINUS TACHYCARDIA ABNORMAL RHYTHM ECG NO PREVIOUS TRACING DOCTOR: Chris Astorga Interpretating Date/Time 02/01/2018 13:55:34
[2018-02-01 14:54] LABS: Hepatitis A IgM Antibody Nonreactive (Nonreactive); Hepatitits B Surface Antigen Nonreactive (Nonreactive)
--- NOTE | 2018-02-01 15:08 | P.CONOB ---
History of Present Illness - Data of Consult Consult date: 02/01/18 Requesting Physician: Roel Garsia DO Primary Care Provider: No Primary Care Physician - Consult Narrative Reason for consult: other (SIRS with vaginal discharge and IUD in place) Narrative: Flora Dhillon is a 27 year old female who was admitted with SIRS with a suspicion for gastroenteritis. She was started om Vancomycin and Zosyn. She was found to have a brownish / yellow vaginal discharge, Vanco and Zosyn were discontinued and Unasyn was started. She reports this discharge started this morning. She has had some mild lower abdominal cramping, which is normal for her periods. She also has had breast pain on the right side for a few days prior to admission. She is still producing mil and continues to breastfeed. She has not noticed any abnormal or bloody discharge. Patient is a with her last child being born one year ago. She has been amenorrheic since that time and continues to breastfeed. On 11/11 she had a copper IUD placed. about one month later (late November) she reports having a malodorous discharge and returned to the [facility] where she was treated for an infection. She is unsure what she was treated with. She does have a history of Chlamydia infection 5 years ago, she was treated successfully (tested for cure) at that time. She reports feeling much better (about 70%) today than she did yesterday. <Dann Rendon - Last Filed: 02/01/18 16:50> - Data of Consult Requesting Physician: Roel Garsia DO Primary Care Provider: No Primary Care Physician - Consult Narrative Narrative: Flora Haywood is a 27 year old female <Anabelle Burnham - Last Filed: 02/01/18 18:17> Review of Systems Constitutional: Reports chills, Reports fever(s), Denies headache(s) Eyes: Denies change in vision Cardiovascular: Denies chest pain, Denies rapid, pounding, or irregular heartbeat Respiratory: Denies cough, Denies shortness of breath Gastrointestinal: Reports nausea, Reports vomiting, Denies abdominal pain, Denies constipation, Denies loose stools Comments: mild lower abdominal cramping Comments: See HPI Comments: See HPI <Dann Rendon - Last Filed: 02/01/18 16:50> PMFSH - History History Provided By: Patient (denies any alcohol, drug abuse or smoking. ), Significant Other - Medical / Surgical Hx Neg / Unobtainable Medical Problems Denied: Yes - Medical History Medical History: Medical History (Last Updated 01/31/18 @ 16:54 by Eileen Campoverde MD) Patient denies medical problems - Surgical History Surgical History: Surgical History (Last Updated 01/31/18 @ 16:54 by Eileen Campoverde MD) No history of previous surgery - Family History Family History: Family History (Last Updated 01/31/18 @ 16:55 by Eileen Campoverde MD) Other Family history normal - Tobacco History Second Hand Smoke Exposure: No Tobacco Use In Past 30 Days: No Smoking Status: Never smoker - Alcohol History How Often Do You Have a Drink Containing Alcohol: Never - Substance Use History Substance History: No History of Abuse - Travel History Recent Travel in the [place] Within the Last 8 Weeks: No Recent Travel Out of the Country Within the Last 8 Weeks: No - Immunization History Tetanus Immunization: Never Vaccinated <Dann Rendon - Last Filed: 02/01/18 16:50> - Medical History Medical History: Medical History (Last Updated 01/31/18 @ 16:54 by Eileen Campoverde MD) Patient denies medical problems - Surgical History Surgical History: Surgical History (Last Updated 01/31/18 @ 16:54 by Eileen Campoverde MD) No history of previous surgery - Family History Family History: Family History (Last Updated 01/31/18 @ 16:55 by Eileen Campoverde MD) Other Family history normal <Anabelle Burnham - Last Filed: 02/01/18 18:17> Medications and Allergies Active Medications: Active Medications Acetaminophen (Tylenol) 650 mg PO Q4H PRN PRN Reason: Temp > 100.4 Last Admin: 01/31/18 14:20 Dose: 650 mg Al Hydroxide/Mg Hydroxide (Milk Of Magnesia Liq) 30 ml PO Q12H PRN PRN Reason: Mild Constipation Bisacodyl (Dulcolax Supp) 10 mg RECTAL DAILY PRN PRN Reason: SEVERE CONSITIPATION Enoxaparin Sodium (Lovenox Inj) 40 mg SQ Q24H [facility] Last Admin: 02/01/18 08:29 Dose: 40 mg Famotidine (Pepcid) 10 mg PO BID [facility] Last Admin: 02/01/18 08:29 Dose: 10 mg Fluconazole (Diflucan) 100 mg PO DAILY [facility] Last Admin: 02/01/18 13:51 Dose: 100 mg Sodium Chloride (Ns Inj) 1,000 mls @ 0 mls/hr IV.SIG BOLUS [facility] Last Infusion: 01/31/18 07:42 Dose: Infused Sodium Chloride (Ns Inj) 1,000 mls @ 100 mls/hr IV.CONT .Q10H [facility] Last Admin: 02/01/18 12:30 Dose: 100 mls/hr Ampicillin Sodium/Sulbactam Sodium 1,500 mg/ Sodium Chloride 100 mls @ 200 mls/ hr IV.SIG Q6H [facility] Last Admin: 02/01/18 13:51 Dose: 200 mls/hr Ibuprofen (Motrin) 400 mg PO Q8H PRN PRN Reason: fever persistent Lactulose (Lactulose Liq) 30 ml PO DAILY PRN PRN Reason: SEVERE CONSITIPATION Miscellaneous Information ([facility] Ordered Lab Info) 0 each OTHER ONCE ONE Stop: 02/01/18 19:46 Ondansetron HCl (Zofran Inj) 4 mg IV.PUSH Q6H PRN PRN Reason: NAUSEA OR VOMITING Senna/Docusate Sodium (Tanvi-Colace) 1 tab PO BID [facility] Last Admin: 02/01/18 08:35 Dose: 1 tab Sennosides (Senokot) 17.2 mg PO Q12H PRN PRN Reason: Moderate Constipation <Dann Rendon - Last Filed: 02/01/18 16:50> Active Medications: Active Medications Acetaminophen (Tylenol) 650 mg PO Q4H PRN PRN Reason: Temp > 100.4 Last Admin: 01/31/18 14:20 Dose: 650 mg Al Hydroxide/Mg Hydroxide (Milk Of Magnesia Liq) 30 ml PO Q12H PRN PRN Reason: Mild Constipation Bisacodyl (Dulcolax Supp) 10 mg RECTAL DAILY PRN PRN Reason: SEVERE CONSITIPATION Enoxaparin Sodium (Lovenox Inj) 40 mg SQ Q24H [facility] Last Admin: 02/01/18 08:29 Dose: 40 mg Famotidine (Pepcid) 10 mg PO BID [facility] Last Admin: 02/01/18 08:29 Dose: 10 mg Fluconazole (Diflucan) 100 mg PO DAILY [facility] Last Admin: 02/01/18 13:51 Dose: 100 mg Sodium Chloride (Ns Inj) 1,000 mls @ 0 mls/hr IV.SIG BOLUS [facility] Last Infusion: 01/31/18 07:42 Dose: Infused Sodium Chloride (Ns Inj) 1,000 mls @ 100 mls/hr IV.CONT .Q10H [facility] Last Admin: 02/01/18 15:47 Dose: Not Given Ampicillin Sodium/Sulbactam Sodium 1,500 mg/ Sodium Chloride 100 mls @ 200 mls/ hr IV.SIG Q6H [facility] Last Infusion: 02/01/18 14:55 Dose: Infused Ibuprofen (Motrin) 400 mg PO Q8H PRN PRN Reason: fever persistent Lactulose (Lactulose Liq) 30 ml PO DAILY PRN PRN Reason: SEVERE CONSITIPATION Miscellaneous Information ([facility] Ordered Lab Info) 0 each OTHER ONCE ONE Stop: 02/01/18 19:46 Ondansetron HCl (Zofran Inj) 4 mg IV.PUSH Q6H PRN PRN Reason: NAUSEA OR VOMITING Senna/Docusate Sodium (Tanvi-Colace) 1 tab PO BID [facility] Last Admin: 02/01/18 08:35 Dose: 1 tab Sennosides (Senokot) 17.2 mg PO Q12H PRN PRN Reason: Moderate Constipation Trimethoprim/Sulfamethoxazole (Bactrim Ds) 1 tab PO Q12HR [facility] <Anabelle Burnham - Last Filed: 02/01/18 18:17> Allergies Allergy/AdvReac Type Severity Reaction Status Date / Time No Known Allergies Allergy Unverified 01/31/18 04:15 Home Medications Medication Instructions Recorded Confirmed Type No Known Home Medications 01/31/18 01/31/18 History Physical Exam Vital signs: Temp Pulse Resp BP Pulse Ox 98.8 F 96 H 19 119/61 95 02/01/18 08:00 02/01/18 08:00 02/01/18 08:00 02/01/18 08:00 02/01/18 08:00 Narrative: General: Well-developed, alert, and in no acute distress. Appears stated age HEENT: Atraumatic, moist mucous membranes Neck: Supple, non-tender without masses or lymphadenopathy, trachea midline Cardiac: Regular rate and rhythm without murmurs Pulmonary: Non-labored breathing. Lungs clear to auscultation bilaterally with good air movement Breast: Diffuse erythema to the right breast Abdomen: Normal bowel sounds, soft and non-tender without rebound or guarding Extremities: No edema, 2+ pedal pulses, capillary refill less than 2 seconds : Normal appearing cervix with IUD string present. No abnormal or malodorous discharge. No cervical motion tenderness. <Dann Rendon - Last Filed: 02/01/18 16:50> Vital signs: Temp Pulse Resp BP Pulse Ox 98.4 F 85 19 119/81 99 02/01/18 16:00 02/01/18 16:00 02/01/18 16:00 02/01/18 16:00 02/01/18 16:00 <Anabelle Burnham - Last Filed: 02/01/18 18:17> Results - Labs CBC & Chem 7: 02/01/18 05:57 02/01/18 05:57 Labs: Short CBC 02/01/18 Range/Units 05:57 WBC 13.5 H (4.0-11.0) th/mm3 Hgb 12.1 (11.6-15.3) gm/dL Hct 36.4 (35.0-46.0) % Plt Count 204 (150-450) th/mm3 BMP 02/01/18 05:57 Sodium 141 Potassium 3.5 Chloride 111 H Carbon Dioxide 22.9 BUN 9 Creatinine 0.51 Calcium 8.0 L - Imaging Impressions Abdomen Ultrasound 01/31/18 00:00 CONCLUSION: 1. Trace ascites 2. Mild echogenic liver. No gallstones. <Dann Rendon - Last Filed: 02/01/18 16:50> - Labs CBC & Chem 7: 02/01/18 05:57 02/01/18 05:57 Labs: Short CBC 02/01/18 Range/Units 05:57 WBC 13.5 H (4.0-11.0) th/mm3 Hgb 12.1 (11.6-15.3) gm/dL Hct 36.4 (35.0-46.0) % Plt Count 204 (150-450) th/mm3 BMP 02/01/18 05:57 Sodium 141 Potassium 3.5 Chloride 111 H Carbon Dioxide 22.9 BUN 9 Creatinine 0.51 Calcium 8.0 L - Imaging Impressions Abdomen Ultrasound 01/31/18 00:00 CONCLUSION: 1. Trace ascites 2. Mild echogenic liver. No gallstones. Pelvis Ultrasound 02/01/18 00:00 CONCLUSION: 1. Negative ultrasound pelvis. <Anabelle Burnham - Last Filed: 02/01/18 18:17> Assessment and Plan - Assessment (1) SIRS (systemic inflammatory response syndrome) Code(s): R65.10 - Systemic inflammatory response syndrome (SIRS) of non- infectious origin without acute organ dysfunction Status: Acute (2) Mastitis Code(s): N61.0 - Mastitis without abscess Status: Acute - Plan 27 year old female admitted with SIRS criteria without a source. [facility] consult was obtained due to her IUD and vaginal discharge. Exam showed normal cervix without abnormal discharge. Breast exam showed mastitis. Mastitis: -Condition discussed with ID -Has been improving on Zosyn and Vanco, Abx deescalated to Unasyn. -ID will consider further Abx changes based on new diagnosis of mastitis -Diflucan, mastitis is likely secondary to There is no evidence of endometritis, therefore it is safe for patient to keep her IUD at this time. Thank you for involving us in this patient's care. Please let us know if you have any further clinical questions. <Dann Rendon - Last Filed: 02/01/18 16:50>
--- NOTE | 2018-02-01 16:53 | P.PN ---
Subjective Interval history: Follow-up for right breast mastitis, possible endometritis. Patient is currently doing well. She complains of right breast tenderness. She initially did not mention any symptoms of her breast. No fever or chills. Breast exam was done in the presence of patient's nurse. Physical Exam Vital signs: Vital Signs 01/31/18 20:00 01/31/18 22:00 02/01/18 00:00 Temperature 99.3 F 99.1 F Pulse Rate 93 H 94 H Respiratory Rate 18 18 17 Blood Pressure 117/62 120/67 Pulse Oximetry 96 96 02/01/18 04:49 02/01/18 08:00 02/01/18 12:00 Temperature 98.2 F 98.8 F 98.5 F Pulse Rate 95 H 95 H 89 Respiratory Rate 17 19 19 Blood Pressure 102/53 L 119/61 104/55 L Pulse Oximetry 99 95 96 Intake & Output 01/31/18 02/01/18 02/01/18 18:59 06:59 18:59 Intake Total 3510 / 3510 2030 / 2030 1450 / 1450 Output Total 1100 / 1100 1400 / 1400 Balance 2410 / 2410 630 / 630 1450 / 1450 Weight 65.771 kg 73 kg Intake: IV 2550 / 2550 1450 / 1450 1450 / 1450 NS Inj 1,000 ML @ 100 mls/hr IV 1000 / 1000 1000 / 1000 .CONT .Q10H [facility] Rx#:[id number] Ofirmev Inj 1,000 mg In 100 ml 100 / 100 @ 400 mls/hr IV.SIG ONCE ONE Rx #:[id number] Unasyn Inj 1,500 MG In NS Inj 100 / 100 100 ML @ 200 mls/hr IV.SIG Q6H [facility] Rx#:[id number] Zosyn 4.5 GM Premix 4.5 gm In 200 / 200 200 / 200 100 / 100 100 ml @ 200 mls/hr IV.SIG Q6H [facility] Rx#:[id number] NS Inj 1,000 ML @ Wide Open IV. 1999 / 1999 SIG BOLUS [facility] Rx#:[id number] Vancomycin Inj 1,000 MG In NS 250 / 250 250 / 250 250 / 250 Inj 250 ML @ 250 mls/hr IV.SIG Q12H [facility] Rx#:[id number] Oral 960 / 960 580 / 580 Output: Urine 1100 / 1100 1400 / 1400 Other: # Bowel Movements 0 0 Narrative: GENERAL: Alert, NAD. SKIN: Warm and dry. Right breast upper outer area has mild erythema and induration as well as tenderness. Left breast unremarkable. HEAD: Normocephalic. EYES: No scleral icterus. No injection or drainage. NECK: Supple, trachea midline. No JVD or lymphadenopathy. CARDIOVASCULAR: Regular rate and rhythm without murmurs, gallops, or rubs. RESPIRATORY: Breath sounds equal bilaterally. No accessory muscle use. GASTROINTESTINAL: Abdomen soft, non-tender, nondistended. MUSCULOSKELETAL: No cyanosis, or edema. BACK: Nontender without obvious deformity. No CVA tenderness. Results - Labs CBC & Chem 7: 02/01/18 05:57 02/01/18 05:57 Laboratory Results - last 24 hr 01/31/18 02/01/18 02/01/18 14:40 05:57 05:57 WBC 13.5 H RBC 4.17 Hgb 12.1 Hct 36.4 MCV 87.3 MCH 29.1 MCHC 33.4 RDW 13.5 Plt Count 204 MPV 8.4 Neut % (Auto) 80.8 H Lymph % (Auto) 12.3 [place] % (Auto) 5.5 Eos % (Auto) 1.0 Baso % (Auto) 0.4 Neut # (Auto) 10.9 H Lymph # (Auto) 1.7 [place] # (Auto) 0.7 Eos # (Auto) 0.1 Baso # (Auto) 0.1 WBC Differential . Differential Comment Auto diff final Sodium 141 Potassium 3.5 Chloride 111 H Carbon Dioxide 22.9 Anion Gap 7 BUN 9 Creatinine 0.51 Estimated GFR Greater than 89 Random Glucose 101 Calcium 8.0 L Procalcitonin 1.65 H Hepatitis A IgM Ab Hep Bs Antigen Hep B Core IgM Ab Hep C IgG Ab HIV 1&2 Ab/P24 Ag 4thGn 02/01/18 13:23 WBC RBC Hgb Hct MCV MCH MCHC RDW Plt Count MPV Neut % (Auto) Lymph % (Auto) [place] % (Auto) Eos % (Auto) Baso % (Auto) Neut # (Auto) Lymph # (Auto) [place] # (Auto) Eos # (Auto) Baso # (Auto) WBC Differential Differential Comment Sodium Potassium Chloride Carbon Dioxide Anion Gap BUN Creatinine Estimated GFR Random Glucose Calcium Procalcitonin Hepatitis A IgM Ab Nonreactive Hep Bs Antigen Nonreactive Hep B Core IgM Ab Nonreactive Hep C IgG Ab Nonreactive HIV 1&2 Ab/P24 Ag 4thGn Nonreactive Microbiology 01/31/18 05:44 Blood - Peripheral Aerobic Blood Culture - Preliminary No growth in 1 day 01/31/18 05:44 Blood - Peripheral Anaerobic Blood Culture - Preliminary No growth in 1 day 01/31/18 05:39 Blood - Peripheral Aerobic Blood Culture - Preliminary No growth in 1 day 01/31/18 05:39 Blood - Peripheral Anaerobic Blood Culture - Preliminary No growth in 1 day - Imaging Impressions Abdomen Ultrasound 01/31/18 00:00 CONCLUSION: 1. Trace ascites 2. Mild echogenic liver. No gallstones. Assessment and Plan - Plan Ms. Haywood is a pleasant 27-year-old female who was admitted to the hospital due to nausea vomiting fever and chills as well as body aches. She reported some whitish vaginal discharge. Patient did not mention any symptoms of her right breast. However after [facility] consultation, she reported right breast tenderness and erythema. She breast-feeds her 1-year-old. Severe Sepsis (HR > 95, WBC 18.9K, HR 140, infection source Mastitis, Lactic acid 2.8) Acute right breast mastitis Possible endometritis -Discussed with infectious disease. Will start patient on Bactrim DS 1 tablet twice daily times 14 days -Bactrim is safe in patients who are breast-feeding if the child is older than 2 months (Uptodate states 1 month). -Continue Unasyn. We can likely switch to Augmentin. -Clinically, patient is doing well. Leukocytosis improved. Mild hypokalemia -potassium 3.1 on admission. Currently 3.5. Full code. Ambulation.
--- NOTE | 2018-02-01 17:45 | US ---
EXAM DATE: 02/01/2018 12:00 AM EDT AGE/SEX: 27 years / Female INDICATIONS: Pelvic pain with vaginal discharge. CLINICAL DATA: This is the patient's initial encounter. Patient reports that signs and symptoms have been present for 1 week and indicates a pain score of 0/10. MEDICAL/SURGICAL HISTORY: . Pelvic pain. Pelvic discharge. Fever. IUD. . IUD placement - November 11, 2017. COMPARISON: No prior exams available for comparison. MEASUREMENTS: Uterus:__9.2 x 5.0 x 3.7 cm Endometrial Stripe:__4 mm Right Ovary:__ 4.8 x 3.0 x 2.5 cm Left Ovary:__ 3.8 x 2.4 x 2.0 cm FINDINGS: Uterus: The myometrium has homogeneous echotexture without mass. Endometrial Stripe: IUD device is noted within the endometrial cavity. Right Ovary: Ovary contains no mass. Follicles are present. Left Ovary: Ovary contains no mass. Follicles are present. Fluid: No free fluid. Other: None. CONCLUSION: 1. Negative ultrasound pelvis. Electronically signed by: Link Gee MD 02/01/2018 5:43 PM EDT
--- NOTE | 2018-02-01 18:23 | P.OBGPN ---
Attending note patient was seen with the residents PGY 1 and PGY 2. Examination reveals right breast mastitis however not consistent with an abscess and also pelvic exam is negative or unremarkable for endomyometritis. IUD appears to be in place and there are no signs of cervicitis or foul odor there is some mild bleeding not unusual with IUD placement. Due to her history of chlamydia previously, although has been was treated we did perform cultures at the bedside. I have spoken to infectious disease regarding her antibiotic therapy and management for treatment of mastitis and also a breast pump ordered.
[2018-02-01] MEDS ORDERED: Pharmacy Ordered Lab Info OTHER ONE (19:45)
[2018-02-02] MEDS: Ampicillin/Sulbactam Inj 1,500 MG in Sodium Chloride 0.9% Inj 100 ML IV.SIG SCH ×2 (02:00→08:17)
[2018-02-02] MEDS: Sod Chloride 0.9% Inj 1,000 ML IV.CONT SCH ×2 (03:32→10:25)
[2018-02-02] MEDS: Fluconazole 100 MG Tablet PO SCH (08:19)
[2018-02-02] MEDS: Famotidine 20 MG Tablet PO SCH (08:21)
[2018-02-02] MEDS: Enoxaparin Inj 40 MG/0.4 ML Syringe SQ SCH (08:22)
[2018-02-02] MEDS: Senna/Docusate Sodium 8.6/50 MG Tablet PO SCH (08:22)
== END 2018-02-02 13:31 | disposition home or self-care (01) ==
LOC: NEPE 03:10 → NEDA 07:52 → N07 09:51
PROVIDERS: ADMIT Hospitalist; ATTEND Hospitalist